=== PATIENT | female | born 1995 | race Caucasian/White ===

== ENCOUNTER 2017-02-27 20:03 | Emergency (ER) | payer BC ==
[~2017-02-27] VITALS: Ht 157.5 cm; Wt 108.9 kg
[2017-02-27 20:15] VITALS: Ht 157.5 cm; Wt 108.9 kg
[2017-02-27 21:44] VITALS: BP 136/92
== END 2017-02-27 21:44 | disposition home or self-care (01) ==
LOC: ED 20:03
DX: J45.909 Unspecified asthma, uncomplicated (principal)
CPT/HCPCS: J1100